=== PATIENT | female | born 1980 | race Caucasian/White ===

== ENCOUNTER 2022-03-23 13:29 | Observation (INO) | payer OTHER, SELFPAY ==
--- NOTE | ~2022-03-23 | US_ITS ---
EXAMINATION: US OB limited DATE: 03/23/2022 15:31 INDICATION: Spotting. Estimated gestational age of 27 weeks and 1 day. TECHNIQUE: Real-time ultrasound of the pelvis was performed. COMPARISON: None. FINDINGS: There is a single fetus in vertex presentation. The placenta is posterior, 10.2 cm from the cervix.. heart rate is 153 beats per minute (bpm). The amniotic fluid volume is subjectively normal. IMPRESSION: 1. Single living fetus in vertex presentation. 2. Normal placenta. Reviewed, dictated and finalized at location A.
[2022-03-23 13:50] VITALS: BMI 32.8
[2022-03-23 13:52] VITALS: BP 121/74; PULSE 94
[2022-03-23 14:01] VITALS: BP 120/70; PULSE 86
--- NOTE | 2022-03-23 14:03 | OBADM ---
This patient, Cameron Lynch, admitted to the OB room OB Post 116 for observation. Patient/family oriented to hospital policies and general routines including ID bracelet, bed and alarms, visiting hours, pain management, procedures, bathroom and other care routines, personal items, smoking policy, room service/diet, and visiting hours. Patient/Family are encouraged to report perceived risks to care and to ask questions if they do not understand what they are told or what they should do.
[2022-03-23 14:22] VITALS: TEMP 36.6
--- NOTE | 2022-03-23 16:45 | PC.NURSE ---
1604--Reported strip and US results to Dr. Foreman. DC orders given.
--- NOTE | 2022-04-03 07:44 | PM.OBTRLD ---
OB - Triage/Final Diagnosis Visit Information Comments/Additional reasons for admission: I have assessed the risk for this patient, Cameron Lynch, and determined that she would benefit from observation care. Final Diagnosis (1) Spotting affecting : Code(s): O26.859 - Spotting complicating , unspecified trimester Status: Acute
== END 2022-03-23 16:04 | disposition home or self-care (01) ==
PROVIDERS: Admitting Provider Obstetrics & Gynecology; Visit Provider Obstetrics & Gynecology
DX: O26.852 Spotting complicating pregnancy, second trimester (principal); Z3A.27 27 weeks gestation of pregnancy
CPT/HCPCS: 76815; G0378; G0379

== ENCOUNTER 2022-06-13 07:55 | Outpatient (CLI) | payer OTHER, SELFPAY ==
[2022-06-13 10:05] LABS: Hemoglobin 11.7 g/dL (12.0-15.0); Red Blood Count 3.75 M/mm3 (4.2-5.4)
[2022-06-13 10:06] LABS: Hematocrit 35.5 % (37.0-47.0); Mean Corpuscular Hemoglobin 31.2 pg (26-34); Mean Corpuscular Volume 94.7 fl (80-100); Mean Platelet Volume 13.5 fl (7.4-10.4); Platelet Count Result 218 k/mm3 (150-375); Red Cell Distribution Width 13.6 % (11.5-14.5)
[2022-06-14 07:25] LABS: Rapid Plasma Reagin Non-Reactive (NonReactive)
== END 2022-06-13 07:56 | disposition home or self-care (01) ==
PROVIDERS: Visit Provider Obstetrics & Gynecology
DX: Z34.93 Encounter for supervision of normal pregnancy, unspecified, third trimester (principal); Z3A.00 Weeks of gestation of pregnancy not specified
CPT/HCPCS: 36415; 85027; 85055; 86592; 86850; 86900; 86901

== ENCOUNTER 2022-06-14 05:27 | Inpatient (IN) | payer OTHER, SELFPAY ==
[2022-06-14] VITALS (51 sets, daily range): BP systolic 100–126; BP diastolic 50–97; PULSE 27–215; RESP 15–18; TEMP 36.3–36.9; O2SAT 78–100; BMI 34.8
--- OUTSIDE RECORDS SUMMARY | 2022-06-14 05:33 | XMS_ITS | Encounter Summary ---
:1980 Author Care Team Providers Name Role Phone Mary Au Referring Provider [phone] Reason for Visit OB visit Non-Stress Test for GDM Assessment and Plan Assessment Note Patient is ___weeks . Discussed plan. 1. Gestational diabetes mellitus ? non-stress test Discussion Note: None recorded.Patient educational handouts: No information available. Plan of Care Reminders Provider Appointments Surg Post Op 06/21/2022 11:30AM Andre Webber MD ? 1Hr Glucose on or around 08/02/2022 Levi Webber MD Lab None recorded. ? ? Referral None recorded. ? ? Procedures None recorded. ? ? Surgeries None recorded. ? ? Imaging Non-stress Test 06/08/2022 [place] Medications Name Start Date ? ? Baby Aspirin 81 mg chewable tablet ? Chew 1 tablet every day by oral route. FaBB 2.2 mg-25 mg-1 mg tablet ? TAKE 1 TABLET BY MOUTH TWICE DAILY Humulin N NPH U-100 Insulin (isophane susp) 100 unit/m L subcutaneous ? Inject 4 units every day by subcutaneous route in the evening. OneTouch Delica Plus Lancet 33 gauge ? OneTouch Ultra Test strips ? USE TO TEST BLOOD SUGAR FOUR TIMES DAILY OneTouch Ultra2 Meter ? Vitamin ? Medications Administered None recorded. Vitals None recorded. Results Lab Results None recorded. Allergies Code Code System Name Reaction Severity Onset NKDA ? ? ? Problems Name Status Onset Date Source ?
--- OUTSIDE RECORDS SUMMARY | 2022-06-14 05:33 | XMS_ITS | Encounter Summary ---
:1980 Author Care Team Providers Name Role Phone Mary Au Referring Provider [phone] Reason for Visit NST [id number] EDC 06/21/2022 LMP 08/18/2021 Assessment and Plan 1. Gestational diabetes mellitus, class A>1< ? non-stress test Discussion Note: None recorded.Patient educational handouts: No information available. Plan of Care Reminders Provider Appointments Surg Post Op 06/21/2022 11:30AM Andre Webber MD ? 1Hr Glucose on or around 08/02/2022 Levi Webber MD Lab None recorded. ? ? Referral None recorded. ? ? Procedures None recorded. ? ? Surgeries None recorded. ? ? Imaging Non-stress Test 06/05/2022 [place] Medications Name Start Date ? ? Baby [...] Vitamin ? Medications Administered None recorded. Vitals Height Weight BMI Blood Pressure 5 ft 6 in 220 lbs 35.5 kg/m2 122/80 mm[Hg] Results Lab Results None recorded. Allergies Code Code System Name Reaction Severity Onset NKDA ? ? ? Problems Name Status Onset Date Source ? Active 12/07/2021
--- OUTSIDE RECORDS SUMMARY | 2022-06-14 05:33 | XMS_ITS ---
:1980 Author Care Team Providers Name Role Phone MOMO TORIBIO Referring Provider [phone] Allergies Code Code System Name Reaction Severity Status Onset NKDA ? Medications Name Status Start Date Stop Date ? ? Adult Low Dose Aspirin Completed ? azithromycin 500 mg tablet Completed ? 11/21 Baby Aspirin 81 mg chewable tablet Active ? Not available Chew 1 tablet every day by oral route. doxycycline hyclate 100 mg capsule Completed ? 11/21/2021 Estarylla 0.25 mg-35 mcg tablet Completed ? 11/21/2021 TAKE 1 TABLET BY MOUTH DAILY estradiol 2 mg tablet Completed ? 01/05/2022 FaBB 2.2 mg-25 mg-1 mg tablet Active ? No t available TAKE 1 TABLET BY MOUTH TWICE DAILY Humulin N NPH U-100 Insulin (isophane susp) 100 Active ? Not available unit/mL subcutaneous leuprolide 1 mg/0.2 mL subcutaneous kit Completed ? 11/22/2021 methylprednisolone 8 mg tablet Completed ? 0 11/21/2021 TAKE 1 TABLET BY MOUTH TWICE DAILY FOR 5 DAYS OneTouch Delica Plus Lancet 33 gauge Active ? Not available OneTouch Ultra Test strips Active ? Not a vailable OneTouch Ultra2 Meter Active ? Not availa ble 28 mg iron-800 mcg tablet Completed ? 11/21/2021 Vitamin Active ? Not available progesterone 50 mg/mL intramuscular oil Completed ? 12/08/2021 Progesterone in Oil Completed ? 01/05/2022 progesterone micronized 100 mg capsule Completed 9 06/09/2019 take 1 capsule by oral route every day after positive preg test Vitamin D2 1,250 mcg (50,000 unit) capsule Completed 12/0506/24/2019 take 1 capsule by oral route every week
--- OUTSIDE RECORDS SUMMARY | 2022-06-14 05:33 | XMS_ITS | Encounter Summary ---
:1980 Author Care Team Providers Name Role Phone Mary Au Referring Provider [phone] Reason for Visit OB visit Assessment and Plan Assessment Note Patient is ___weeks . Discussed plan. 1. Routine care Discussion Note: None recorded.Patient educational handouts: No information available. Plan of Care Reminders Provider Appointments Surg Post Op 06/21/2022 11:30AM Andre Webber MD ? 1Hr Glucose on or around 08/02/2022 Levi Webber MD Lab None recorded. ? ? Referral None recorded. ? ? Procedures None recorded. ? ? Surgeries None recorded. ? ? Imaging None recorded. ? ? Medications Name Start Date ? ? Baby [...] BMI Blood Pressure 5 ft 6 in 221 lbs 35.7 kg/m2 134/88 mm[Hg] Results Lab Results None recorded. Allergies Code Code System Name Reaction Severity Onset NKDA ? ? ? Problems Name Status Onset Date Source ? Active 12/07/2021 ?
--- OUTSIDE RECORDS SUMMARY | 2022-06-14 05:33 | XMS_ITS | Encounter Summary ---
:1980 Author Care Team Providers Name Role Phone Mary Au Referring Provider [phone] Reason for Visit nst [id number] EDC 06/21/2022 Assessment and Plan 1. Gestational diabetes mellitus ? non-stress test Discussion Note: None recorded.Patient educational handouts: No information available. Plan of Care Reminders Provider Appointments Surg Post Op 06/21/2022 11:30AM Andre Webber MD ? 1Hr Glucose on or around 08/02/2022 Levi Webber MD Lab None recorded. ? ? Referral None recorded. ? ? Procedures None recorded. ? ? Surgeries None recorded. ? ? Imaging Non-stress Test 06/12/2022 [place] Medications Name Start Date ? ? Baby [...] ft 6 in 221 lbs 35.7 kg/m2 123/85 mm[Hg] Results Lab Results None recorded. Allergies Code Code System Name Reaction Severity Onset NKDA ? ? ? Problems Name Status Onset Date Source ? Active 12/07/2021 ? I
--- OUTSIDE RECORDS SUMMARY | 2022-06-14 05:34 | XMS_ITS | Encounter Summary ---
:1980 Author Care Team Providers Name Role Phone Mary Au Referring Provider [phone] Reason for Visit None recorded. Assessment and Plan 1. Routine care Discussion Note: None recorded.Patient [...] BMI Blood Pressure 5 ft 6 in 129 lbs 20.8 kg/m2 140/85 mm[Hg] Results Lab Results None recorded. Allergies Code Code System Name Reaction Severity Onset NKDA ? ? ? Problems Name Status Onset Date Source ? Active 12/07/2021 ? IVF - in Vitro Fertilization Using Donor Sperm Active 0 01/05/2022 ? Gestational Diabetes Mellitus Active ?
--- OUTSIDE RECORDS SUMMARY | 2022-06-14 05:34 | XMS_ITS | Encounter Summary ---
:1980 Author Care Team Providers Name Role Phone Mary Au Referring Provider [phone] Reason for Visit None recorded. Assessment and Plan 1. Advanced maternal age ? non-stress test Discussion Note: None recorded.Patient educational handouts: No information available. Plan of Care Reminders Provider Appointments Surg Post Op 06/21/2022 11:30AM Andre Webber MD ? 1Hr Glucose on or around 08/02/2022 Levi Webber MD Lab None recorded. ? ? Referral None recorded. ? ? Procedures None recorded. ? ? Surgeries None recorded. ? ? Imaging Non-stress Test 05/22/2022 [place] Medications Name Start Date ? ? Baby [...] 01/05/2022 ? Gestational Diabetes Mellitus Active ? ?
--- OUTSIDE RECORDS SUMMARY | 2022-06-14 05:34 | XMS_ITS | Encounter Summary ---
:1980 Author Care Team Providers Name Role Phone Mary Au Referring Provider [phone] Reason for Visit None recorded. Assessment and Plan 1. Gestational diabetes mellitus, [...] None recorded. ? ? Imaging Non-stress Test 06/01/2022 [place] Medications Name Start Date ? ? Baby [...]
--- OUTSIDE RECORDS SUMMARY | 2022-06-14 05:34 | XMS_ITS | Encounter Summary ---
:1980 Author Care Team Providers Name Role Phone Mary Au Referring Provider [phone] Reason for Visit OB visit Assessment and Plan Assessment Note Patient is ___weeks . Discussed plan. 1. Routine care 2. Breech presentation ? section (SURG) Discussion Note: None recorded.Patient educational handouts: No information available. Plan of Care Reminders Provider Appointments Surg Post Op 06/21/2022 11:30AM Andre Webber MD ? 1Hr Glucose on or around Andre shin MD 08/02/2022 Lab None recorded. ? ? Referral None recorded. ? ? Procedures None recorded. ? ? Surgeries Section (SURG) 06/14/2022 [facility] None recorded. ? ? Medications Name [...] BMI Blood Pressure 5 ft 6 in 219 lbs 35.3 kg/m2 128/84 mm[Hg] Results Lab Results None recorded. All
--- OUTSIDE RECORDS SUMMARY | 2022-06-14 05:34 | XMS_ITS | Encounter Summary ---
:1980 Author Care Team Providers Name Role Phone Mary uA Referring Provider [phone] Reason for Visit None recorded. Assessment and [...] None recorded. ? ? Imaging Non-stress Test 05/29/2022 [place] Medications Name Start Date ? ? Baby [...]
--- OUTSIDE RECORDS SUMMARY | 2022-06-14 05:34 | XMS_ITS | Encounter Summary ---
:1980 Author Care Team Providers Name Role Phone Mary Au Referring Provider [phone] Reason for Visit None recorded. Assessment and Plan 1. Gestational diabetes mellitus, class A>1< ? US, obstetric, follow-up Discussion Note: None recorded.Patient educational handouts: No information available. Plan of Care Reminders Provider Appointments Surg Post Op 06/21/2022 11:30AM Andre Webber MD ? 1Hr Glucose on or around Andre shin MD 08/02/2022 Lab None recorded. ? ? Referral None recorded. ? ? Procedures None recorded. ? ? Surgeries None recorded. ? ? Imaging US, Obstetric, 05/25/2022 [place] Follow-up Medications Name Start Date ? ? Baby [...]
--- OUTSIDE RECORDS SUMMARY | 2022-06-14 05:34 | XMS_ITS | Encounter Summary ---
:1980 Author Care Team Providers Name Role Phone Mary Au Referring Provider [phone] Reason for Visit OB visit Assessment and [...] ft 6 in 220 lbs 35.5 kg/m2 124/81 mm[Hg] Results Lab Results None recorded. Allergies Code Code System Name Reaction Severity Onset NKDA ? ? ? Problems Name Status Onset Date Source ? Active 12/07/2021 ?
--- OUTSIDE RECORDS SUMMARY | 2022-06-14 05:34 | XMS_ITS | Encounter Summary ---
:1980 Author Care Team Providers Name Role Phone Mary Au Referring Provider [phone] Reason for Visit None recorded. Assessment and [...] None recorded. ? ? Imaging Non-stress Test 05/25/2022 [place] Medications Name Start Date ? ? Baby [...]
--- OUTSIDE RECORDS SUMMARY | 2022-06-14 05:34 | XMS_ITS | Encounter Summary ---
:1980 Author Care Team Providers Name Role Phone Mary Au Referring Provider [phone] Reason for Visit None recorded. Assessment and [...] None recorded. ? ? Imaging Non-stress Test 05/15/2022 [place] Medications Name Start Date ? ? Baby [...]
--- OUTSIDE RECORDS SUMMARY | 2022-06-14 05:34 | XMS_ITS | Encounter Summary ---
:1980 Author Care Team Providers Name Role Phone Mary Au Referring Provider [phone] Reason for Visit None recorded. Assessment and [...] None recorded. ? ? Imaging Non-stress Test 05/18/2022 [place] Medications Name Start Date ? ? Baby [...]
--- OUTSIDE RECORDS SUMMARY | 2022-06-14 05:35 | XMS_ITS | Encounter Summary ---
:1980 Author Care Team Providers Name Role Phone Mary Au Referring Provider [phone] Reason for Visit None recorded. Assessment and Plan 1. IVF - in-vitro fertilization pregnan cy ? non-stress test Discussion Note: None recorded.Patient educational handouts: No information available. Plan of Care Reminders Provider Appointments Surg Post Op 06/21/2022 11:30AM Andre Webber MD ? 1Hr Glucose on or around 08/02/2022 Levi Webber MD Lab None recorded. ? ? Referral None recorded. ? ? Procedures None recorded. ? ? Surgeries None recorded. ? ? Imaging Non-stress Test 05/04/2022 [place] Medications Name Start Date ? ? Baby [...]
--- OUTSIDE RECORDS SUMMARY | 2022-06-14 05:35 | XMS_ITS | Encounter Summary ---
:1980 Author Care Team Providers Name Role Phone Mary Au Referring Provider [phone] Reason for Visit None recorded. Assessment and Plan 1. Gestational diabetes mellitus, class A>2< Pt here for insulin teaching. Per AD ne ed to start on 4u NPH @ HS. Insulin teaching completed with pt. Went over insulin syr teri with pt and how to interpret how many units she needs. Demonstrated to pt how to draw up 4u of insulin. Pt properly demonstrated back to me how to draw up 4 u of insulin and also had pt practice drawing up 7u of insulin in case we increase dos e. Pt aware to clean top of vial and leg with alcohol swab prior to drawing up/adminis tering insulin. Pt informed how to give SQ injection. Rx sent to [facility] in [place]. Pt will f/u next week at appt with BS or sooner if needed if fastings continue to be elevated. Pts questions were answered and pt verbalized understanding. Rx sent . [facility] quick Discussion Note: None recorded.Patient educational handouts: No [...]
--- OUTSIDE RECORDS SUMMARY | 2022-06-14 05:35 | XMS_ITS | Encounter Summary ---
:1980 Author Care Team Providers Name Role Phone Mary Au Referring Provider [phone] Reason for Visit None recorded. Assessment and Plan 1. Gestational diabetes mellitus [...] None recorded. ? ? Imaging Non-stress Test 05/08/2022 [place] Medications Name Start Date ? ? Baby [...]
--- OUTSIDE RECORDS SUMMARY | 2022-06-14 05:35 | XMS_ITS | Encounter Summary ---
:1980 Author Care Team Providers Name Role Phone Mary Au Referring Provider [phone] Reason for Visit OB visit Assessment and Plan 1. Advanced maternal age 2. Gestational diabetes mellitus 3. In vitro fertilization Discussion Note: None recorded.Patient educational handouts: No [...] BMI Blood Pressure 5 ft 6 in 217 lbs 35 kg/m2 124/83 mm[Hg] Results Lab Results None recorded. Allergies Code Code System Name Reaction Severity Onset NKDA ? ? ? Problems Name Status Onset Date Source ? Active 12/07/2021 ? IVF - in
--- OUTSIDE RECORDS SUMMARY | 2022-06-14 05:35 | XMS_ITS | Encounter Summary ---
:1980 Author Care Team Providers Name Role Phone Mary Au Referring Provider [phone] Reason for Visit OB visit Assessment and [...] BMI Blood Pressure 5 ft 6 in 216 lbs 34.9 kg/m2 137/87 mm[Hg] Results Lab Results None recorded. Allergies Code Code System Name Reaction Severity Onset NKDA ? ? ? Problems Name Status Onset Date Source ? Active 12/07/2021 ?
--- OUTSIDE RECORDS SUMMARY | 2022-06-14 05:35 | XMS_ITS | Encounter Summary ---
:1980 Author Care Team Providers Name Role Phone Mary Au Referring Provider [phone] Reason for Visit None recorded. Assessment and [...] None recorded. ? ? Imaging Non-stress Test 05/11/2022 [place] Medications Name Start Date ? ? Baby [...]
--- OUTSIDE RECORDS SUMMARY | 2022-06-14 05:35 | XMS_ITS | Encounter Summary ---
:1980 Author Care Team Providers Name Role Phone Mary Au Referring Provider [phone] Reason for Visit None recorded. Assessment and Plan 1. Advanced maternal age 2. Gestational diabetes mellitus Discussion Note: None recorded.Patient educational handouts: No information available. Plan of Care Reminders Provider Appointments Surg Post Op 06/21/2022 11:30AM Ander Webber MD ? 1Hr Glucose on or [...] BMI Blood Pressure 5 ft 6 in 215 lbs 34.7 kg/m2 126/77 mm[Hg] Results Lab Results None recorded. Allergies Code Code System Name Reaction Severity Onset NKDA ? ? ? Problems Name Status Onset Date Source ? Active 12/07/2021 ? IVF - in Vitro Fertilization Using Donor Sperm Active 0 01/05/2022
--- OUTSIDE RECORDS SUMMARY | 2022-06-14 05:35 | XMS_ITS | Encounter Summary ---
:1980 Author Care Team Providers Name Role Phone Mary Au Referring Provider [phone] Reason for Visit NST [id number] EDC 06/21/2022 Assessment and Plan 1. Gestational diabetes mellitus, [...] None recorded. ? ? Imaging Non-stress Test 05/01/2022 [place] Medications Name Start Date ? ? Baby [...] BMI Blood Pressure 5 ft 6 in 214 lbs 34.5 kg/m2 132/84 mm[Hg] Results Lab Results None recorded. Allergies Code Code System Name Reaction Severity Onset NKDA ? ? ? Problems Name Status Onset Date Source ? Active 12/07/2021 ?
--- OUTSIDE RECORDS SUMMARY | 2022-06-14 05:36 | XMS_ITS | Encounter Summary ---
:1980 Author Care Team Providers Name Role Phone Mary Au Referring Provider [phone] Reason for Visit OB visit Assessment and [...] ft 6 in 217 lbs 35 kg/m2 130/80 mm[Hg] Results Lab Results None recorded. Allergies Code Code System Name Reaction Severity Onset NKDA ? ? ? Problems Name Status Onset Date Source ? Active 12/07/2021 ?
--- OUTSIDE RECORDS SUMMARY | 2022-06-14 05:36 | XMS_ITS | Encounter Summary ---
:1980 Author Care Team Providers Name Role Phone Mary Au Referring Provider [phone] Reason for Visit None recorded. Assessment and Plan None recorded.Discussion Note: None recorded.Patient educational handouts: No information [...] ? Gestational Diabetes Mellitus Active ? ? Marginal Insertion of Umbilical Cord Active ? ? Advanced Maternal Age Active ? ? In Vitro Fertilization Ac
--- OUTSIDE RECORDS SUMMARY | 2022-06-14 05:36 | XMS_ITS | Encounter Summary ---
:1980 Author Care Team Providers Name Role Phone Mary Au Referring Provider [phone] Reason for Visit OB visit Assessment and [...] ft 6 in 217 lbs 35 kg/m2 124/79 mm[Hg] Results Lab Results None recorded. Allergies Code Code System Name Reaction Severity Onset NKDA ? ? ? Problems Name Status Onset Date Source ? Active 12/07/2021 ?
--- OUTSIDE RECORDS SUMMARY | 2022-06-14 05:36 | XMS_ITS | Encounter Summary ---
:1980 Author Care Team Providers Name Role Phone Mary Au Referring Provider [phone] Reason for Visit None recorded. Assessment and Plan 1. Gestational diabetes mellitus, class A>1< Pt here for diet teaching. Went over id eal ranges for FBS and pp BS. Went over carb counting and carb ranges for each meal/s nack. Gave ideas for foods to eat for meals/snacks. Discussed drink options an d to avoid soda and juice. Told pt she can go online to [employer] for meal options or to loo k up low carb meal recipes online for ideas as well. Pt picked up glucometer last ni ght, but hasn't checked any sugars yet. Pt wanted me to show her how to use glucome ter. Demonstrated to pt how to use glucometer, test strip, and lancets. Had pt check BS and fasting level was at 91. Told pt to continue checking BS QID and adjusting diet to follow low carb diet to try to keep BS within normal range. Pt aware if sugars aren't controlled by diet we would discuss starting insulin. Went over NST schedule with pt and importance of keeping these appts and checking BS for her and baby's health. Pts questions were answered and pt verbalized understanding. bnwheel er, RN Discussion Note: None recorded.Patient educational handouts: No [...]
--- OUTSIDE RECORDS SUMMARY | 2022-06-14 05:36 | XMS_ITS | Encounter Summary ---
:1980 Author Care Team Providers Name Role Phone Mary Au Referring Provider [phone] Reason for Visit None recorded. Assessment and Plan 1. Placental condition affecting manage ment of mother ? US, obstetric, follow-up Discussion Note: None recorded.Patient educational handouts: No information available. Plan of Care Reminders Provider Appointments Surg Post Op 06/21/2022 11:30AM Andre Webber MD ? 1Hr Glucose on or around Andre shin MD 08/02/2022 Lab None recorded. ? ? Referral None recorded. ? ? Procedures None recorded. ? ? Surgeries None recorded. ? ? Imaging US, Obstetric, 04/24/2022 [place] Follow-up Medications Name Start Date ? ? [...]
--- OUTSIDE RECORDS SUMMARY | 2022-06-14 05:36 | XMS_ITS | Encounter Summary ---
:1980 Author Care Team Providers Name Role Phone Mary Au Referring Provider [phone] Reason for Visit None recorded. Assessment and Plan 1. Marginal insertion of umbilical cord ? US, obstetric, follow-up Discussion Note: None recorded.Patient educational handouts: No information available. Plan of Care Reminders Provider Appointments Surg Post Op 06/21/2022 11:30AM Andre Webber MD ? 1Hr Glucose on or around Andre shin MD 08/02/2022 Lab None recorded. ? ? Referral None recorded. ? ? Procedures None recorded. ? ? Surgeries None recorded. ? ? Imaging US, Obstetric, 03/30/2022 [place] Follow-up Medications Name Start Date ? ? [...]
--- NOTE | 2022-06-14 06:08 | LDADM ---
This patient, Cameron Lynch, was admitted to Labor/Delivery/Recovery 120 on 06/14/22 at 05:27. Plans for labor, pain management and were discussed with patient. Patient/family oriented to hospital policies and general routines including ID bracelet, bed and alarms, visiting hours, pain management, procedures, bathroom and other care routines, personal items, smoking policy, room service/diet and guest tray routines, security routines, and visiting hours. Patient/Family are encouraged to report perceived risks to care and to ask questions if they do not understand what they are told or what they should do. See [facility] for further documentation.
[2022-06-14] MEDS: LACTATED RINGERS 1,000 ML 125 ML IV CONT (06:38)
--- NOTE | 2022-06-14 06:46 | P.PNAN_ITS ---
Anes - Initial Pre Proc Eval Procedure: Operation Date: 06/14/22 07:30 Proposed Procedures p Section - Marek Webber MD Date/Time: 06/14/22 06:46 Surgeon: Marek Webber MD Pre Op Diagnosis: C/S Patient Data Age: 41 Gender: F Height: 1.68 m Weight: 98 kg Last Vital Signs Pulse 78 06/14/22 06:31 BP 122/82 06/14/22 06:31 O2 Del Method Room Air 06/14/22 06:07 Allergies Allergy/AdvReac Type Severity Reaction Status Date / Time No Known Allergies Allergy Verified 05/24/22 12:39 Home Medications Medication Instructions Recorded Confirmed Type aspirin 81 mg tablet,delayed 81 mg PO DAILY 05/24/22 06/14/22 History release (Esthela Low Dose Aspirin) famotidine 10 mg tablet (Pepcid AC) 10 mg PO DAILY 05/24/22 06/14/22 History folic acid 1 mg tablet 1 mg PO BID 05/24/22 06/14/22 History prenat.vits,cersencio,lpa-fhec-pfgdy 1 tablet PO DAILY 05/24/22 06/14/22 History Patient hx anesthesia problems: none Family hx anesthesia problems: none Results Review: All pre-operative results and documents have been reviewed as part of the pre- operative evaluation. [facility] Family History Family History Father Brain tumor (benign) Glaucoma High cholesterol Grandparent Diabetes mellitus Pancreatic cancer Grandparent Macular degeneration Emphysema lung Grandparent Cerebrovascular accident Grandparent Heart attack Hypertension Macular degeneration Social History Social History Smoking status: Never smoker Substance use: never Spiritual care concerns: No Anes - Eval Final PreProcedure Day of Procedure 06/14/22 06:46 Patient weight: overweight Heart: regular rate and rhythm Lungs: clear to auscultation Airway: Mallampati scale class II Neurological: alert and oriented Last oral intake: >/= 8 hours ASA classification: II Emergent: no Anesthetic plan: proceed Anesthesia type and monitoring: regional spinal and standard monitoring Results Review: All pre-operative results and documents have been reviewed as part of the pre- operative evaluation. Informed Consent: The patient's anesthetic plan and its attendant risks and benefits were discussed with the patient/family/POA. Questions were solicited and answers provided to the satisfaction of the patient/family/POA.
--- NOTE | 2022-06-14 07:26 | WPDHPUPDATE1 ---
History and Physical Update Update Date/Time: 06/14/22 07:26 History and Physical has been reviewed, including an updated exam of the patient. There are NO changes in the patient's condition. Risks, benefits, and alternatives have been discussed and questions answered. Patient agrees to proceed with procedure.
--- NOTE | 2022-06-14 07:27 | PM.IMHP ---
H&P: HPI History of Present Illness Date/Time: 06/14/22 07:27 Chief Complaint: Breech, term Narrative: this patient is a 41-year-old multiparous female at its 39 weeks gestation with breech presentation fetus. She has recurrent miscarriage history. We have agreed to perform delivery. She understands risks, benefits, and alternatives. She understands that injuries may occur that result in hospitalization, more surgery, severe illness. She understands risk of hemorrhage infection. Review of Systems Review of Systems: All systems reviewed & are unremarkable except as noted in HPI and below Constitutional: Constitutional: Denies chills, Denies fatigue, Denies fever(s) and Denies weakness Eyes: Eyes: Denies blurry vision, Denies change in vision, Denies loss of peripheral vision, Denies loss of vision, Denies other visual disturbances and Denies eye pain ENT: Denies vertigo, Denies dizziness, Denies hearing loss, Denies mouth pain, Denies nasal obstruction, Denies neck mass and Denies neck pain Cardiovascular: Cardiovascular: Denies chest pain, Denies diaphoresis, Denies syncope, Denies leg edema and Denies dyspnea Respiratory: Respiratory: Denies chest congestion, Denies cough, Denies hemoptysis, Denies dyspnea and Denies wheezing Gastrointestinal: Gastrointestinal: Denies abdominal pain, Denies constipation, Denies diarrhea, Denies nausea and Denies vomiting Genitourinary: Genitourinary: Denies hematuria, Denies change in libido, Denies nocturia, Denies genital lesions, Denies flank pain and Denies urinary urgency Musculoskeletal: Musculoskeletal: Denies abnormal gait, Denies back pain, Denies myalgias, Denies arthralgias, Denies joint swelling, Denies muscle weakness and Denies neck pain Integumentary/Breasts: Skin/Breast: Denies swelling, Denies breast pain, Denies breast mass, Denies dry skin, Denies nipple discharge, Denies unusual bruising and Denies jaundice Neurologic: Denies Neuro-related abnormal movements, Denies Abnormal speech present, Denies abnormal gait, Denies behavioral changes, Denies confusion, Denies vertigo, Denies dizziness, Denies syncope, Denies loss of vision, Denies memory loss, Denies convulsions and Denies weakness Psychiatric: Psychiatric: Denies abnormal sleep pattern, Denies behavioral changes, Denies change in libido, Denies confusion, Denies depression, Denies anhedonia and Denies memory loss Endocrine: Endocrine: Reports no additional endocrine complaints, Denies change in libido and Denies fatigue Hematologic/Lymphatic: Hematologic/Lymphatic: Reports no additional hematologic/lymphatic complaints Allergic/Immunologic: Allergic/Immunologic: Reports no additional allergic/immunologic complaints and Denies wheezing PMFSH Family History Family History Father Brain tumor (benign) Glaucoma High cholesterol Grandparent Diabetes mellitus Pancreatic cancer Grandparent Macular degeneration Emphysema lung Grandparent Cerebrovascular accident Grandparent Heart attack Hypertension Macular degeneration Social History Social History Smoking status: Never smoker Substance use: never Spiritual care concerns: No Meds Home Medications and Allergies Home Medications Medication Instructions Recorded Confirmed Type aspirin 81 mg tablet,delayed 81 mg PO DAILY 05/24/22 06/14/22 History release (Esthela Low Dose Aspirin) famotidine 10 mg tablet (Pepcid AC) 10 mg PO DAILY 05/24/22 06/14/22 History folic acid 1 mg tablet 1 mg PO BID 05/24/22 06/14/22 History prenat.vits,cresencio,huv-[id number]-[id number] 1 tablet PO DAILY 05/24/22 06/14/22 History Allergies Allergy/AdvReac Type Severity Reaction Status Date / Time No Known Allergies Allergy Verified 05/24/22 12:39 Vital Signs Vital Signs - 24 hr 06/14/22 05:54 06/14/22 06:01 06/14/22 06:31 Temper
--- NOTE | 2022-06-14 08:28 | W.PM.PROC2 ---
Procedure Note - Detailed Date of Procedure 06/14/22 Pre-op Diagnosis term breech Post-op Diagnosis Same Procedure Performed Low-transverse section Surgeon Marek Webber MD Anesthesia Spinal Indications Term breech Findings Normal gestational maternal anatomy, average size , normal Apgars. Description of Procedure The patient was taken the operating room. She was prepped and draped in dorsal supine position with a leftward tilt. This was done after spinal anesthetic was applied. A low-transverse skin incision was made and carried down till of the fascia with the knife. The fascial incision was made with the knife. The fascial incision was extended laterally with Polk scissors. The fascia was tented upward superiorly and inferiorly the rectus muscles were dissected off bluntly. The rectus muscles were the midline. The preperitoneal fat and peritoneum were dissected open bluntly at the superior aspect of the rectus muscles. The peritoneal incision was extended superior and inferior with good position of bladder. The uterine incision was made with a scalpel down to the level of the amniotic cavity. The amniotic cavity was entered bluntly. The was delivered. The cord was clamped and cut and the was handed off to waiting pediatric staff. Cord bloods were obtained. The placenta was removed manually. The uterus was exteriorized. The uterus was cleared of all clots, debris and membranes. The uterus was closed in 0 Vicryl running lock fashion. An imbricating over a was placed along the incision line as well. The uterus was returned to the abdomen. The gutters were cleared of all clots and debris. The fascia was closed with 0 Vicryl running fashion. The subcutaneous tissue was irrigated pinpoint bleeders were cauterized. The skin was closed with subcuticular absorbable frances. The skin incision line was covered with glue. The patient tolerated the procedure well. She has taken recovery room in stable condition. Sponge lap and needle counts were correct x2. Complications No immediate complications Condition Stable Disposition PACU
[2022-06-14] MEDS: OXYTOCIN 30 UNITS/NS 500 ML 30 UNITS/500 ML BAG 125 UNITS IV CONT (09:00)
--- NOTE | 2022-06-14 11:00 | OBPPTRN ---
Patient transferred to post room #277 via stretcher. Support person present. Oriented to unit, room, information board, rooming in, admission packet and security measures. Patient verbalizes understanding.
[2022-06-14] MEDS: ONDANSETRON INJ 4 MG/2 ML VIAL IV PUSH (12:44)
[2022-06-14] MEDS: KETOROLAC 30 MG/ML VIAL (*BKC) IV PUSH (12:44)
--- NOTE | 2022-06-14 12:46 | PC.NURSE ---
Addendum entered by Kasandra Horn RN 06/14/22 15:21: RN visualized bruising on the nipple prior to the attempts. Reviewed deep latching and there should be no biting or pinchy pain when we got to that stage of learning. Original Note: [id number] Introductions were made, then consulted with patient to assess needs related to . 41 yo primary C/S for sona breech Mother led the conversation with her experience feeding her infant so far and states breastfed great downstairs. Mother works well with her with encouragement and education despite having nausea. Encouraged understanding of the benefits of skin to skin (unwrapping infant and placing vertically on her chest), responsive feeding and how to watch for early feeding signs, frequency of feeding on demand about every 8-12 times in 24 hours (every 2-3 hours), milk production, duration of feeding, signs of adequate intake/output and how to record on the feeding sheet. Reviewed positioning and ear, shoulder, hip alignment, supporting the breast, asymmetrical latch (off-center), and leading with the chin with a big open side gape. is not making any attempts at this time with demonstrating big,open,wide,gape or feeding cues. Mother had emesis and primary RN was called for medication. Infant diaper changed of void and meconium and placed back skin to skin with mother. Resources used to facilitate learning were used with the visual handouts/ tool/mom and baby guide. Mother voiced understanding of responsive feedings, stimulating with skin to skin, hand expressed colostrum, touch, talking to infant to encourage if it has been 2 -3 hours since the start of the last , watching for feeding cues of squirming to look for the breast, and to call if infant does not latch or there is discomfort with . Primary RN Mary is now present in the room.
[2022-06-14] MEDS: DEXTROSE 5%/0.45% SOD CHL 1,000 ML 125 ML IV CONT (12:48)
--- NOTE | 2022-06-14 15:07 | PC.NURSE ---
[id number] Consulted with patient to assess needs related to . Mother led conversation with her experience with feeding baby so far. Mother works well with her infant with encouragement. Reviewed working with infant, breast, nipples and how to protect the nipples with an optimal deep latch, good positioning, and good hand washing. Encouraged understanding the benefits of skin to skin, responding to feeding cues, frequencies of feeding 8-12 times in 24 hours (approximately 2-3 hours), duration of feedings, milk production, intake/output feeding sheet and signs of adequate intake encouraging swallowing at the breast. Reviewed positioning and alignment, supporting breast, off-centered (asymmetrical latch) and leading with the chin with big open wide gape. Assisted infant latched to the left breast in football position on/off with a few sucks or attempted with a big, wide, open gape, then held nipple in her mouth. After infant was placed skin to skin and initiated feeding cues mother was assisted with latching infant to the right breast. Education given to mother of how to visualize suck/swallow ratios and drinking at the breast. was able to maintain latch without discomfort to mother. Nipple care reviewed with optimal latch and good positioning and to have clean hands when touching the nipple/breast as needed. Resources used to facilitate learning were used from the visual handout/ tool/mom and baby guide. Mother voiced understanding of the education shared, calling for assistance if the infant does not latch or if there is discomfort with . Reported to the primary RN.
[2022-06-14] MEDS: HYDROcodone/acetaminophen (*CRX) 5-325 MG TABLET 1 TAB PO (21:50)
[2022-06-14] MEDS: IBUPROFEN 600 MG TABLET PO (21:50)
[2022-06-15] MEDS: HYDROcodone/acetaminophen (*CRX) 5-325 MG TABLET 1 TAB PO ×4 (04:38→15:50)
[2022-06-15 04:56] LABS: Basophils Percent Auto 0.3 % (0.2-1.2); Eosinophils Absolute Auto 0.1 K/mm3 (0-0.3); Eosinophils Percent Auto 0.6 % (0-4.4); Hematocrit 27.2 % (37.0-47.0); Immature Granulocyte Absolute 0.07 K/mm3 (0.00-0.031); Immature Granulocyte Percent A 0.7 % (0-0.5); Immature Platelet Fraction Pct 7.8 % (0.9-11.2); Lymphocytes Absolute Auto 1.34 K/mm3 (0.9-3.2); Lymphocytes Percent Auto 13.4 % (18.3-44.2); Mean Corpuscular HGB Conc 33.1 g/dl (32-36); Mean Corpuscular Hemoglobin 31.5 pg (26-34); Mean Corpuscular Volume 95.1 fl (80-100); Monocytes Absolute Auto 0.8 K/mm3 (0.1-0.6); Monocytes Percent Auto 8.3 % (2.6-8.5); Neutrophils Absolute Auto 7.7 K/mm3 (1.3-6.7); Neutrophils Percent Auto 76.7 % (45.5-73.1); Red Blood Count 2.86 M/mm3 (4.2-5.4); Red Cell Distribution Width 13.6 % (11.5-14.5)
[2022-06-15 07:35] VITALS: BP 99/64; PULSE 75; RESP 18; TEMP 37.1; O2SAT 98
--- NOTE | 2022-06-15 07:52 | P.PNOB_ITS ---
OB - PN: Subj Subjective Date/time seen: 06/15/22 07:52 Patient comments: no complaints, pain well controlled, tolerating diet and flatus present OB - PN: Obj Data Labs CBC & Chem 7: 06/15/22 04:24 Labs: Laboratory Results - last 24 hr 06/15/22 04:24 WBC 10.0 RBC 2.86 L Hgb 9.0 L Hct 27.2 L MCV 95.1 MCH 31.5 MCHC 33.1 RDW 13.6 Plt Count TNP MPV TNP Immature Gran % (Auto) 0.7 H Neut % (Auto) 76.7 H Lymph % (Auto) 13.4 L [place] % (Auto) 8.3 Eos % (Auto) 0.6 Baso % (Auto) 0.3 Lymph # (Auto) 1.34 [place] # (Auto) 0.8 H Eos # (Auto) 0.1 Baso # (Auto) 0.0 Abs Immat Gran (auto) 0.07 H Absolute Neuts (auto) 7.7 H Absolute Nucleated RBC 0.0 Nucleated RBC % 0.0 % Immature Plt Fraction 7.8 OB - PN A/P Plan day: 1 Comments: Post Op LTCS - no problems, routine recovery Time Spent With Patient Time: Total time spent is greater than 50% in coordination of care (as documented) at patient's floor/unit and/or counseling patient: Exam Const: General: cooperative, healthy appearing, comfortable and no acute distress Resp: Auscultation: no crackles, no rales, no rhonchi and no wheezes Cardio: Rhythm: regular rhythm Heart sounds: no click and no murmurs GI: Inspection: non-distended Auscultation: normal bowel sounds Extrem: General: normal to inspection, no pedal edema and no calf tenderness
[2022-06-15] MEDS: MULTIVIT/MIN/PREN/FOL AC/IRON TABLET 1 TAB PO (08:55)
[2022-06-15] MEDS: DOCUSATE SODIUM 100 MG CAPSULE PO ×2 (08:55→15:49)
[2022-06-15] MEDS: POLYSACCHARIDE IRON COMPLEX 150 MG CAPSULE PO ×2 (08:56→15:49)
[2022-06-15] MEDS: IBUPROFEN 600 MG TABLET PO ×2 (08:56→15:50)
--- NOTE | 2022-06-15 10:52 | PC.NURSE ---
[id number] Consulted with patient to assess needs related to and how the last 12 hours went. The parents shared in leading the conversation with her experience with feeding baby so far. Mother works well with her infant with encouragement. Mother is in cradle position on the right breast with infant body slightly hanging down, left arm crossing the chest and mouth is wide open with rounded cheek line. Mother denies pain. After 20 minutes of mother detaches . Nipple is slightly misshaped. Reviewed working with infant, breast, nipples and how to protect the nipples with an optimal deep latch, good positioning, and good hand washing. Encouraged understanding the benefits of skin to skin, responding to feeding cues, frequencies of feeding 8-12 times in 24 hours (approximately 2-3 hours), duration of feedings, milk production, intake/output feeding sheet and signs of adequate intake encouraging swallowing at the breast. Reviewed positioning and alignment, supporting breast, off-centered (asymmetrical latch) and leading with the chin with big open wide gape. latched optimally to the left breast in football position. Education given to mother of how to visualize suck/swallow ratios and drinking at the breast. was able to maintain latch without discomfort to mother. Nipple care reviewed with optimal latch and good positioning and to have clean hands when touching the nipple/breast as needed. Resources used to facilitate learning were used from the mom and baby guide. Parents voiced understanding of the education shared, calling for assistance if the infant does not latch or if there is discomfort with . Reported to the primary RN.
--- NOTE | 2022-06-15 12:57 | WPDANLDPN2 ---
Anes-Prog Note L&D Date/Time: 06/15/22 12:57 Comfortable throughout: section Neuraxial method: spinal Epidural/Spinal procedure site: clean & non-tender Neuro status: Neuro function grossly intact. Cardiovascular status: normal Respiratory status: normal Airway patency: baseline Mental status: baseline Post-Op hydration status: normal Vital Signs: Last Vital Signs Temp 37.1 C 06/15/22 07:35 Pulse 75 06/15/22 07:35 Resp 18 06/15/22 07:35 BP 99/64 L 06/15/22 07:35 Pulse Ox 98 06/15/22 07:35 O2 Del Method Room Air 06/14/22 15:30 Pain score (VAS): 2/10 I/O: Intake & Output 06/14/22 06/15/22 06/15/22 23:59 07:59 15:59 Intake Total 500 1000 300 Output Total 2600 Balance 500 -1600 300 Post-procedural complaints: none Patient feedback: Patient satisfied with anesthetic care.
--- NOTE | 2022-06-15 12:58 | WPDANLDNPN2 ---
Anes-Prog Note L&D-Neuraxial Date/Time: 06/15/22 12:58 Neuraxial medications: intrathecal PF morphine Opiod-related complaints: none Patient feedback: Patient satisfied with post-operative pain management.
[2022-06-15] MEDS: TETANUS,DIPHTHERIA,AC PERTUSSIS ADULT (0.5 ML) BOOSTRIX IM (15:51)
[2022-06-15] MEDS: HYDROcodone/acetaminophen (*CRX) 10-325 MG TABLET 1 TAB PO (19:22)
[2022-06-15 20:10] VITALS: BP 117/71; PULSE 70; RESP 16; TEMP 36.4; O2SAT 97
[2022-06-16] MEDS: HYDROcodone/acetaminophen (*CRX) 10-325 MG TABLET 1 TAB PO (02:47)
--- NOTE | 2022-06-16 07:41 | PM.OBPNVD ---
OB - PN: Subj Subjective Date/time seen: 06/16/22 07:41 Patient comments: no complaints, pain well controlled, incisional pain, tolerating diet and flatus present OB - PN: Obj Data Labs CBC & Chem 7: 06/15/22 04:24 OB - PN A/P Plan day: 2 Plan: routine care Comments: POD#2 LTCS - no problems, Time Spent With Patient Time: Total time spent is greater than 50% in coordination of care (as documented) at patient's floor/unit and/or counseling patient: Exam Const: General: comfortable, no acute distress and alert Resp: Effort & Inspection: normal respiratory effort Auscultation: no crackles, no rales and no rhonchi Cardio: Rate: regular rate Heart sounds: no click, no murmurs and no rubs GI: Inspection: non-distended GI Palp: No Tenderness to palpation present (GI) Auscultation: normal bowel sounds Other: Incision - CDI Extrem: General: normal to inspection, no pedal edema and no calf tenderness
[2022-06-16 08:15] VITALS: BP 122/83; PULSE 74; RESP 20; TEMP 36.5; O2SAT 98
[2022-06-16] MEDS: MULTIVIT/MIN/PREN/FOL AC/IRON TABLET 1 TAB PO (08:56)
[2022-06-16] MEDS: IBUPROFEN 600 MG TABLET PO ×2 (08:56→16:22)
[2022-06-16] MEDS: DOCUSATE SODIUM 100 MG CAPSULE PO ×2 (08:56→16:05)
[2022-06-16] MEDS: HYDROcodone/acetaminophen (*CRX) 5-325 MG TABLET 1 TAB PO ×3 (08:58→16:22)
[2022-06-16] MEDS: POLYSACCHARIDE IRON COMPLEX 150 MG CAPSULE (09:12)
[2022-06-16 16:31] VITALS: BP 111/63; PULSE 76; RESP 18; TEMP 36.6; O2SAT 97
--- NOTE | 2022-06-16 16:41 | P.DS_ITS ---
DS: Admitting Diagnosis Discharge Date 06/16/22 Admitting Diagnosis breech position OB - DS: Summary OB Procedures : None OB Procedures Intrapartum: OB Procedures: : None Peripartum Data Procedures: Procedures Operation Date: 06/14/22 07:30 Actual Procedure Side Surgeon p Section Not Applicable Marek Webber MD Time Spent with Patient Time attestation: Total time spent providing and/or coordinating discharge services: Discharge Plan Discharge Discharging Clinician: Marek Webber Patient Disposition: Home, Self-Care Activity: pelvic rest Diet: regular Patient Instructions: Antibiotic Form Stand Alone Forms: General Discharge Information Follow-up/Referrals: Marek Webber MD [Physician] - Discharge Medications: New hydrocodone-acetaminophen 5-325 mg tablet 1 tablet PO Q4H PRN (Reason: pain) Qty: 25 0RF Continued famotidine [Pepcid AC] 10 mg Tablet 10 mg PO DAILY folic acid 1 mg Tablet 1 mg PO BID #2 Tablet 1 tablet PO DAILY Discontinued aspirin [Esthela Low Dose Aspirin] 81 mg Tablet,Delayed Release (Dr/Ec) 81 mg PO DAILY Date of admission: 06/14/22 05:27 Primary Care Provider: PHYSICIAN,CABLE ARMORER Admitting Provider: Marek Webber Attending physician on admission: Marek Webber Condition: Stable
--- NOTE | 2022-06-16 17:19 | PC.NURSE ---
Patient viewed the discharge video Mother & Baby Care, The First Two Weeks . Patient was given the opportunity and encouraged to ask questions. Patient verbalized understanding of information shared and has been given the mother/baby guide for home reference.
[2022-06-18 14:11] VITALS: BP 132/78; PULSE 71; RESP 20; TEMP 36.8; O2SAT 100
== END 2022-06-16 17:55 | disposition home or self-care (01) | DRG 788 ==
LOC: ANHLDR 05:31 → ANHOB2 11:22
PROVIDERS: Admitting Provider Obstetrics & Gynecology; Visit Provider Obstetrics & Gynecology
PROC: 10D00Z1 Extraction of Products of Conception, Low, Open Approach (ICD-10-PCS; CPT 59514; principal; 2022-06-14 07:30)
DX: O32.1XX0 Maternal care for breech presentation, not applicable or unspecified (principal); O24.429 Gestational diabetes mellitus in childbirth, unspecified control; Z3A.39 39 weeks gestation of pregnancy; Z37.0 Single live birth; Z79.82 Long term (current) use of aspirin
CPT/HCPCS: 36415; 85025; 85027; 85055; 86592; 86850; 86900; 86901; 90715; A9270; J0131; J1885; J2274; J2405; J2590; J7120

== ENCOUNTER → 2023-06-17 10:07 | Outpatient (CLI) | payer OTHER, SELFPAY ==
--- NOTE | ~2023-06-17 | MM_ITS ---
EXAMINATION: MM screening lamar BI w debi HISTORY: Screening mammogram TECHNIQUE: Craniocaudal and mediolateral oblique 3-D tomosynthesis images were obtained and synthetic 2-D images were generated. CAD analysis was submitted and interpreted. COMPARISON: No prior mammogram is available for comparison at this institution. BREAST PARENCHYMAL COMPOSITION: There are scattered areas of fibroglandular density. FINDINGS: There is no evidence of suspicious mass, calcification, or architectural distortion to sugg est malignancy in either breast. IMPRESSION: 1. No mammographic evidence of malignancy. 2. Recommend routine screening mammography in one year. BI-RADS Category 1: Negative Reviewed, dictated and finalized at location A.
== END ==
PROVIDERS: PCP Advanced Practice Midwife; Visit Provider Advanced Practice Midwife
DX: Z12.31 Encounter for screening mammogram for malignant neoplasm of breast (principal)
CPT/HCPCS: 77063; 77067

== ENCOUNTER 2024-10-22 14:14 | Outpatient (CLI) | payer BC, SELFPAY ==
--- NOTE | ~2024-10-22 | MM_ITS ---
EXAMINATION: MM screening lamar BI w edbi HISTORY: Screening TECHNIQUE: Craniocaudal and mediolateral oblique 3-D tomosynthesis images were obtained and synthetic 2-D images were generated. CAD analysis was submitted and interpreted. COMPARISON: 06/17/2023 BREAST PARENCHYMAL COMPOSITION: Not dense: There are scattered areas of fibroglandular density. FINDINGS: There is no evidence of suspicious mass, calcification, or architectural distortion to sugg est malignancy in either breast. There has been no suspicious interval change. IMPRESSION: 1. No mammographic evidence of malignancy. 2. Recommend routine screening mammography in one year. BI-RADS Category 1: Negative Reviewed, dictated and finalized at location B. MECHANIC SUPERVISOR
== END 2024-10-22 14:15 | disposition home or self-care (01) ==
PROVIDERS: PCP Advanced Practice Midwife; Visit Provider Advanced Practice Midwife
DX: Z12.31 Encounter for screening mammogram for malignant neoplasm of breast (principal)
CPT/HCPCS: 77063; 77067

== ENCOUNTER 2025-10-26 10:36 | Outpatient (CLI) | payer BC, SELFPAY ==
--- NOTE | ~2025-10-26 | MM_ITS ---
EXAMINATION: MM screening lamar BI w debi HISTORY: Screening. TECHNIQUE: Craniocaudal and mediolateral oblique 3-D tomosynthesis images were obtained and synthetic 2-D images were generated. CAD analysis was submitted and interpreted. COMPARISON: 2023 and 2022 BREAST PARENCHYMAL COMPOSITION: Not Dense: The breasts are almost entirely fatty FINDINGS: No suspicious masses are seen. There are no suspicious calcifications. No unexplained architectural distortion is seen. There are no skin or nipple abnormalities identified. There is no adenopathy seen on the images submitted. IMPRESSION: No mammographic evidence to suggest malignancy is seen. The patient may return to screening mammography as per ACR guidelines. BI-RADS 1 - Negative. Reviewed, dictated and finalized at location C. 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
== END 2025-10-26 10:37 | disposition home or self-care (01) ==
PROVIDERS: PCP Advanced Practice Midwife; Visit Provider Advanced Practice Midwife
DX: Z12.31 Encounter for screening mammogram for malignant neoplasm of breast (principal)
CPT/HCPCS: 77063; 77067